=== PATIENT | female | born 1975 | race Two or more races ===

== ENCOUNTER 2020-12-05 10:30 | Inpatient (IN) | payer OTHER ==
[~2020-12-05] VITALS: Ht 160 cm; Wt 86.2 kg
[~2020-12-05 10:30] MED LIST: ALBUTEROL0.63 MG/3; BUDEO.25; SINGULAIR10 MG; SYMBICORT 16010.2 GM; ZYRTEC10 M2
[2020-12-05] MEDS ORDERED: LEVALBUTEROL TA15 GM IH (14:12)
[2020-12-11] MEDS ORDERED: LEVALBUTER0.63 MG/3 (07:55)
[2020-12-14] MEDS ORDERED: CIPRO500 MG/5 M PO (11:16)
[2020-12-14] MEDS ORDERED: RELAFEN DS1000 MG PO (11:20)
[2020-12-14] MEDS ORDERED: ULTRACET PO (11:22)
[2020-12-14] MEDS ORDERED: NAPROXEN375 MG PO (11:22)
[2020-12-14] MEDS ORDERED: TANDEM PLUS CA1 EACH PO (11:23)
[2020-12-14] MEDS ORDERED: PEPCID AC20 MG PO (11:23)
== END 2020-12-14 12:03 | disposition home or self-care (01) | DRG 743 ==
LOC: O/R 12-11 05:45 → OB/GYN 12-11 05:45 → SURH 12-11 07:00 → OB/GYN 12-11 13:18 → SURG-SUITE 12-13 16:07
PROVIDERS: Urology; ADMIT Obstetrics & Gynecology; ATTEND Obstetrics & Gynecology
PROC: 3E0F7GC Introduction of Other Therapeutic Substance into Respiratory Tract, Via Natural or Artificial Opening (ICD-10-PCS; 2020-12-11)
PROC: 0UT90ZZ Resection of Uterus, Open Approach (ICD-10-PCS; principal; 2020-12-11 07:00)
PROC: 0UT70ZZ Resection of Bilateral Fallopian Tubes, Open Approach (ICD-10-PCS; 2020-12-11 07:00)
DX: N92.0 Excessive and frequent menstruation with regular cycle (principal); N80.9 Endometriosis, unspecified; D25.1 Intramural leiomyoma of uterus; N73.6 Female pelvic peritoneal adhesions (postinfective); D50.8 Other iron deficiency anemias

== ENCOUNTER 2023-07-25 12:06 | Emergency (ER) | payer OTHER ==
[~2023-07-25] VITALS: Ht 160 cm; Wt 86.2 kg
[~2023-07-25 12:06] MED LIST changes: +CIPRO500 MG/5 M PO; +LEVALBUTER0.63 MG/3; +LEVALBUTEROL TA15 GM IH; +NAPROXEN375 MG PO; +PEPCID AC20 MG PO; +RELAFEN DS1000 MG PO; +TANDEM PLUS CA1 EACH PO; +ULTRACET PO
[2023-07-25] MEDS ORDERED: XOPENEX HFA15 GM (12:31)
[2023-07-25] MEDS ORDERED: NEXIUM10 MG (12:31)
[2023-07-25] MEDS ORDERED: PEPCID AC20 MG (12:31)
[2023-07-25 13:18] LABS: HEMATOCRIT 39.7 % (36.0-45.00); HEMOGLOBIN 13.2 g/dL (12.0-15.00); MEAN CORPUSCULAR HEMOGLOBIN 28.6 pg (27.00-32.0); MEAN CORPUSCULAR HGB CONC 33.2 g/dl (32.0-36.0); PLATELET COUNT 319 K/uL (150-450); RED BLOOD COUNT 4.61 M/uL (4.00-6.00); RED CELL DISTRIBUTION WIDTH 14.5 % (11.5-14.5)
[2023-07-25] MEDS ORDERED: TUSNEL LIQUID178 ML PO (14:55)
[2023-07-25] MEDS ORDERED: BENZONATATE200 M1 PO (14:55)
[2023-07-25] MEDS ORDERED: ZITHROMAX500 MG PO (14:55)
[2023-07-25] MEDS ORDERED: IPRAT-ALBUT 0.5-3 ML IH (14:55)
== END 2023-07-25 15:15 | disposition home or self-care (01) ==
LOC: ER 12:07
PROVIDERS: General Practice
DX: J45.909 Unspecified asthma, uncomplicated (principal); Z20.822 Contact with and (suspected) exposure to COVID-19